=== PATIENT | female | born 1935 | race Caucasian/White ===

== ENCOUNTER 2024-05-22 07:39 | Outpatient (CLI) | payer MEDICARE, BC, SELFPAY | END 2024-05-22 07:40 | disposition home or self-care (01) | LOC: AMB 05-23 15:58 | PROVIDERS: PCP Family Medicine; Visit Provider Family Medicine | DX: M54.9 Dorsalgia, unspecified (principal); F03.90 Unspecified dementia, unspecified severity, without behavioral disturbance, psychotic disturbance, mood disturbance, and anxiety | CPT/HCPCS: A0425; A0427 ==

== ENCOUNTER 2024-05-22 08:26 | Observation (INO) | payer MEDICARE, BC, SELFPAY ==
[2024-05-22] VITALS (7 sets, daily range): BP systolic 165–200; BP diastolic 77–81; PULSE 62–90; RESP 16–20; TEMP 36.2–36.6; O2SAT 91–96; BMI 20.9
--- NOTE | 2024-05-22 08:47 | ED.GENADULT ---
HPI - General Adult General Chief complaint: Fall/Minor Trauma Stated complaint: Fall Time Seen by Provider: 05/22/24 08:49 History of Present Illness HPI narrative: Patient is an 89-year-old woman who lives with her daughter. She has had frequent falls of varying severity over the last several weeks. It is unclear why that she has hit her head. It is unclear whether she has had a loss of consciousness. Patient complains today of pain in her low back in the midline. She has no musculoskeletal complaints otherwise. Patient has significant dementia and arrives via EMS. By history she has had no fevers no chills no night sweats no nausea no vomiting. She appears well cared for and has been eating and drinking normally. Related Data Home Medications ?Medication ?Instructions ?Recorded ?Confirmed donepezil .ROUTE 05/22/24 folic acid .ROUTE 05/22/24 levothyroxine .ROUTE 05/22/24 lisinopril .ROUTE 05/22/24 methotrexate .ROUTE 05/22/24 metoprolol tartrate .ROUTE 05/22/24 mirtazapine .ROUTE 05/22/24 prednisolone .ROUTE 05/22/24 rivaroxaban .ROUTE 05/22/24 Allergies Allergy/AdvReac Type Severity Reaction Status Date / Time No Known Drug Allergies Allergy Verified 05/22/24 09:04 Review of Systems Status of ROS: Reports: 10 or more systems reviewed and unremarkable except as noted in History and below Exam Narrative: Exam Narrative: EXAM GENERAL: Patient appears comfortable and well. EYES: No scleral icterus. LYMPH: No supraclavicular or cervical lymphadenopathy. SKIN: Visible skin seen during exam normal or with benign process only. EXT: No dependent lower extremity pedal edema. HEART: Regular rate and rhythm with no murmurs, rubs, or gallops. LUNGS: Clear to auscultation bilaterally with no crackles or wheezes. ABD: Soft, non tender, non distended. PSYCH: Good eye contact, speech is not pressured. GCS is normal but the patient does have confusion due to dementia. Const: Vital Signs, click to edit/add: Vital Signs - 24 hr 05/22/24 08:41 Temperature 97.7 F Pulse Rate [Pulse Oximeter] 71 Respiratory Rate 16 Blood Pressure [Ri ght Upper Arm] 165/77 H Pulse Oximetry 91 Oxygen Delivery Me thod Room Air Course Course ED Course: CT head neck chest abdomen pelvis CBC comprehensive metabolic panel UA EKG pending. Vital Signs Vital signs: Initial Vital Signs Temperature 97.7 F 05/22/24 08:41 Temperature Source Temporal Artery Scan 05/22/24 08:41 Pulse Rate 71 05/22/24 08:41 Respiratory Rate 16 05/22/24 08:41 Blood Pressure 165/77 H 05/22/24 08:41 Blood Pressure Mean 106 H 05/22/24 08:41 Pulse Oximetry 91 05/22/24 08:41 Oxygen Delivery Method Room Air 05/22/24 08:41 Vital Signs Temperature 97.7 F 05/22/24 08:41 Pulse Rate 71 05/22/24 08:41 Respiratory Rate 16 05/22/24 08:41 Blood Pressure 165/77 H 05/22/24 08:41 Pulse Oximetry 91 05/22/24 08:41 Oxygen Delivery Method Room Air 05/22/24 08:41 Temperature 97.7 F 05/22/24 08:41 Pulse Rate 71 05/22/24 08:41 Respiratory Rate 16 05/22/24 08:41 Blood Pressure 165/77 H 05/22/24 08:41 Pulse Oximetry 91 05/22/24 08:41 Oxygen Delivery Method Room Air 05/22/24 08:41 Medical Decision Making MDM Narrative Medical decision making narrative: Patient is 89-year-old woman who has been falling at home. She comes in by EMS as family is unable to care for although they have been doing a her road job to this point. I did do CT chest abdomen pelvis as well as head neck. I do not see any pathology in her labs are reassuring EKG shows no acute abnormalities. Patient is anticoagulated for history of blood clots. She has history of dementia hypertension rheumatoid arthritis. I did have a nice discussion with both she and her family advising them that they may not be safe at home and being in the hospital is the right thing in observation. Also recommended a care home stay and I stated that she will likely not be in acute care long enough to qualify for rehab stay and may need Pap from for care home bed. All questions were answered patient and family like to proceed with admission to observation. Lab Data Labs: Lab Results 05/22/24 05/22/24 Range/Units 09:15 09:45 WBC 13.77 H (4.50-11.00) K/uL RBC 4.64 (4.00-5.20) m/uL Hgb 14.4 (12.0-16.0) gm/dL Hct 44.1 (33.0-51.0) % MCV 95 (80-100) fL MCH 31 (26-34) pg MCHC 33 (32-36) gm/dL RDW Coeff of Shameka 14.4 (11.5-15.5) % Plt Count 159 (140-440) K/uL Neut % (Auto) 91.5 H (42.0-72.0) % Lymph % (Auto) 2.5 L (20-44) % [place] % (Auto) 5.4 (0.0-11.0) % Eos % (Auto) 0.1 (0.0-7.0) % Baso % (Auto) 0.2 (0.0-3.0) % Neut # (Auto) 12.60 H (1.7-7.0) K/uL Lymph # (Auto) 0.30 L (0.90-2.90) K/uL [place] # (Auto) 0.70 (0.00-0.90) K/UL Eos # (Auto) 0.00 (0.00-0.50) K/uL Baso # (Auto) 0.00 (0.00-0.30) K/uL Abs Immat Gran (auto) 0.00 (0.00-0.30) K/uL Imm/Tot Granulo (auto) 0.3 % Sodium 139 (135-149) mmol/L Potassium 4.3 (3.6-5.1) mmol/L Chloride 103 (96-114) mmol/L Carbon Dioxide 27 (20-32) mmol/L Anion Gap 9 (7-15) mEq/L BUN 18 (7-30) mg/dL Creatinine 1.0 (0.5-1.5) mg/dL Estimated GFR 54 ml/min Glucose 157 H (60-115) mg/dL Calcium 9.0 (8.4-10.6) mg/dL Total Bilirubin 1.8 H (0.1-1.5) mg/dL AST 30 (12-35) U/L ALT 18 (4-35) U/L Alkaline Phosphatase 76 (40-150) U/L Total Protein 6.4 (6.0-8.3) g/dL Albumin 3.8 (3.3-5.0) g/dL Urine Color Yellow (Yellow) Urine Appearance Clear (Clear) Urine pH 6.5 (5.0-8.5) Ur Specific [place] 1.010 (1.000-1.030) Urine Protein Negative (Negative) Urine Glucose (UA) Negative (Negative) Urine Ketones Negative (Negative) Urine Blood Negative (Negative) Urine Nitrite Negative (Negative) Urine Bilirubin Negative (Negative) Urine Urobilinogen 0.2 (0.2-1.0) Ur Leukocyte Esterase Negative (Negative) Discharge Plan Discharge Clinical Impression: Falls Patient Disposition: Admitted As Observation Condition: Stable Activity Level: Other Discharge Diet: Other Prescriptions: No Action donepezil .ROUTE levothyroxine [Levothroid] .ROUTE lisinopril .ROUTE metoprolol tartrate .ROUTE rivaroxaban [Xarelto] .ROUTE mirtazapine .ROUTE folic acid .ROUTE methotrexate .ROUTE prednisolone .ROUTE Follow Up/Referrals: Hitesh Gonzalez MD [Primary Care Provider] -
[2024-05-22 09:20] LABS: Basophils Percent Auto 0.2 % (0.0-3.0); Eosinophils Percent Auto 0.1 % (0.0-7.0); Hematocrit 44.1 % (33.0-51.0); Hemoglobin* 14.4 gm/dL (12.0-16.0); Immature Granulocytes Pct Auto 0.3 %; Lymphocytes Percent Auto 2.5 % (20-44); Mean Corpuscular HGB Conc 33 gm/dL (32-36); Mean Corpuscular Hemoglobin 31 pg (26-34); Mean Corpuscular Volume 95 fL (80-100); Monocytes Percent Auto 5.4 % (0.0-11.0); Neutrophils Percent Auto 91.5 % (42.0-72.0); Platelet Count* 159 K/uL (140-440); RDW Coefficient of Variation % 14.4 % (11.5-15.5); Red Blood Count 4.64 m/uL (4.00-5.20); White Blood Count* 13.77 K/uL (4.50-11.00)
[2024-05-22 09:23] LABS: Slide Review Reflex No
[2024-05-22 09:33] LABS: Chloride* 103 mmol/L (96-114)
[2024-05-22 09:34] LABS: Albumin* 3.8 g/dL (3.3-5.0); Potassium* 4.3 mmol/L (3.6-5.1); Sodium* 139 mmol/L (135-149)
[2024-05-22 09:36] LABS: Anion Gap 9 mEq/L (7-15); Bilirubin Total* 1.8 mg/dL (0.1-1.5); Blood Urea Nitrogen* 18 mg/dL (7-30); Carbon Dioxide* 27 mmol/L (20-32); Estimated Glomerular Filt Rate 54 ml/min; Total Protein* 6.4 g/dL (6.0-8.3)
[2024-05-22 09:37] LABS: Alanine Aminotransferase* 18 U/L (4-35); Alkaline Phosphatase* 76 U/L (40-150); Aspartate Amino Transferase* 30 U/L (12-35); Glucose* 157 mg/dL (60-115)
[2024-05-22 09:53] LABS: Appearance Urine Clear (Clear); Bilirubin Urine Negative (Negative); Blood Urine Negative (Negative); Color Urine Yellow (Yellow); Glucose Urine Negative (Negative); Ketones Urine Negative (Negative); Leukocyte Esterase Urine Negative (Negative); Nitrite Urine Negative (Negative); Protein Urine Negative (Negative); Urobilinogen Urine 0.2 (0.2-1.0); pH Urine 6.5 (5.0-8.5)
--- NOTE | 2024-05-22 13:25 | PC.NURSE ---
Admission - Pt arrived from ED at approximately 1050 accompanied by friend and daughter. Not able to get out of bed, transferred from ED bed to MS bed by slide transfer. Pt alert, oriented to self only. Admission questions answered by daughter, Heydi. Pt indicated feeling pain in her back, but was unable to rate on scale of 1-10 and was easily distractible when asked about discomfort. Tolerating RA and able to drink thin liquids with assistance and straw. Family at bedside.
--- NOTE | 2024-05-22 13:48 | PM.IMHP1 ---
Hospitalist- H&P: HPI History of Present Illness Date Seen: 05/22/24 Chief complaint: Fall Narrative: Demetria Olivera is a 89 year old female with dementia, anticoagulation, DVT, rheumatoid arthritis, hypothyroidism, osteoporosis admitted through the emergency department after recurrent falls at home. Patient lives with her daughter and her son-in-law. They are her caregivers. They public works laborer. She has had increasing problems with falling having fallen the last 3 days at home. Her daughter is also noted overall decline recently in her health status. She is also noted to have increasing visual hallucinations. She has been having visual hallucinations for some time but they have gotten worse recently. These are mostly not frightening and mostly she is to seeing people present in her room where she is sitting. She has not had obvious other symptoms of illness, cold, cough, fever, shortness of breath, chest pain or abdominal pain. She has been eating normally and bowel bladder function been normal for her. She is incontinent of urine. Her daughter is concerned that she can no longer care for her in the home and is interested in alternative placement. Review of Systems Narrative: Patient unable to report any symptoms due to dementia. Her daughter is not aware of any problems other than declining cognitive function and ability to walk and worsening hallucinations. 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 - Immunodeficiency due to drugs (ICD-10) ?Z79.899 - Other usp (current) drug therapy (ICD-10) Osteoporosis ?M81.0 - Age-related osteoporosis without current pathological fracture (ICD-10) Sjogrens syndrome ?M35.00 - Sjogren syndrome, unspecified (ICD-10) Chronic anticoagulation ?Z79.01 - rn long term care (current) use of anticoagulants (ICD-10) History of DVT (deep vein thrombosis) ?Z86.718 - Personal history of other venous thrombosis and embolism (ICD-10) Hypothyroidism ?E03.9 - Hypothyroidism, unspecified (ICD-10) Rheumatoid arthritis ?M06.9 - Rheumatoid arthritis, unspecified (ICD-10) Dementia ?F03.90 - Unspecified dementia, unspecified severity, without behavioral disturbance, psychotic disturbance, mood disturbance, and anxiety (ICD-10) Surgical History (Updated 05/22/24 @ 13:55 by Oz Weiss MD) History of lumbar laminectomy ?Z98.890 - Other specified postprocedural states (ICD-10) Family History (Updated 05/22/24 @ 13:56 by Oz Weiss MD) Brother Dementia Father Dementia Social History (Updated 05/22/24 @ 13:58 by Oz Weiss MD) Narrative: She lives with her daughter and her daughter's in [place]. They go to the [facility] for primary care. Her primary care physician just left the practice. She has been living with her daughter for about 2 years. She does not smoke. She rarely drinks alcohol. Code status is DNR DNI. Her daughter, Heydi, is healthcare POA What is your current living situation?: unable to answer Problems where you live: no known problems Problems where you live details: daughter (caregiver) reports increased need at home due to frequent falls and increased AMS/hallucinations In the past 12 months, utilities in danger of being shut off: no In past 12 months, lack of transportation kept you from medical appts, meetings, work, or getting things needed for daily living: no In the past 12 mos, have been you worried that your food would run out before you had money to buy more?: never true In the past 12 mos, the food you bought just didn't last and you didn't have money to buy more?: never true Smoking Status: Never smoker Second hand tobacco smoke exposure: No How often do you have a drink containing alcohol: monthly or less How often do you have six or more drinks on one occasion: Never AUDIT-C Alcohol total score: 1 Non-prescribed substance use: denies use Caffeine: Yes (coffee) How often does anyone, including family, friends and others, physically hurt you: unable to answer How often does anyone, including family, friends and others, insult or talk down to you: unable to answer How often does anyone, including family, friends and others, threaten you with harm: unable to answer How often does anyone, including family, friends and others, scream or curse at you: unable to answer Meds Home Medications and Allergies Home Medications ?Medication ?Instructions ?Recorded ?Confirmed ?Type donepezil 10 mg tablet 10 mg PO DAILY 05/22/24 05/22/24 History folic acid 1 mg tablet 2 mg PO DAILY 05/22/24 05/22/24 History levothyroxine 75 mcg tablet 75 mcg PO DAILY 05/22/24 05/22/24 History lisinopril 20 mg tablet 20 mg PO DAILY 05/22/24 05/22/24 History methotrexate sodium 2.5 mg tablet 20 mg PO QWEEK 05/22/24 05/22/24 History metoprolol tartrate 25 mg tablet 25 mg PO BID 05/22/24 05/22/24 History mirtazapine 30 mg tablet 30 mg PO HS 05/22/24 05/22/24 History prednisone 5 mg tablet 5 mg PO DAILY 05/22/24 05/22/24 History rivaroxaban 20 mg tablet (Xarelto) 20 mg PO DAILY 05/22/24 05/22/24 History Allergies Allergy/AdvReac Type Severity Reaction Status Date / Time No Known Drug Allergies Allergy Verified 05/22/24 09:04 Exam Narrative: Exam Narrative: She is alert, pleasant and in no distress. Her speech is fluent. She is not oriented to her circumstances her location or able to recall any events of the last day. Head is without trauma. Eyes normal. Oropharynx is normal. No facial asymmetry. Neck is supple without mass or adenopathy. Respirations are clear to auscultation. Cardiovascular: S1, S2, regular rate and rhythm. Abdomen is soft without tenderness or mass. External genitalia normal. Extremities without notable trauma. She has good motion and strength in all 4 extremities without focal weakness. No significant edema. Intact pedal pulses. Const: Vital Signs, click to edit/add: Vital Signs - 24 hr 05/22/24 08:41 05/22/24 13:07 Temperature 97.7 F 97.2 F L Pulse Rate [Pulse Oximeter] 71 62 Respiratory Rate 16 20 Blood Pressure [Ri ght Arm] 200/78 H Blood Pressure [Ri ght Upper Arm] 165/77 H Pulse Oximetry 91 95 Oxygen Delivery Me thod Room Air Room Air Documenting provider has reviewed patient's vital signs: yes Hospitalist - H&P: Result Labs Labs: Short CBC 05/22/24 Range/Units 09:15 WBC 13.77 H (4.50-11.00) K/uL Hgb 14.4 (12.0-16.0) gm/dL Hct 44.1 (33.0-51.0) % Plt Count 159 (140-440) K/uL BMP 05/22/24 09:15 Sodium 139 Potassium 4.3 Chloride 103 Carbon Dioxide 27 BUN 18 Creatinine 1.0 Glucose 157 H Calcium 9.0 Liver Function 05/22/24 Range/Units 09:15 Total Bilirubin 1.8 H (0.1-1.5) mg/dL AST 30 (12-35) U/L ALT 18 (4-35) U/L Alkaline Phosphatase 76 (40-150) U/L Albumin 3.8 (3.3-5.0) g/dL Urine 05/22/24 Range/Units 09:45 Urine Color Yellow (Yellow) Urine Appearance Clear (Clear) Urine pH 6.5 (5.0-8.5) Ur Specific [place] 1.010 (1.000-1.030) Urine Protein Negative (Negative) Urine Glucose (UA) Negative (Negative) Assessment and Plan Assessment and plan (1) Falls: Problem comment: Patient needs a walker for safety but is forgetting to use it. She is also falling when getting out of bed or out of the recliner. No longer safe to be up on her own Status: Acute (2) Dementia: Problem comment: Moderately severe. Status: Acute (3) Immunosuppression due to drug therapy: Problem comment: On chronic methotrexate and prednisone for rheumatoid arthritis. Not having an obvious infection at this time. Continue to monitor for acute illness that might account for her recent worsening. Status: Acute (4) Discharge planning issues: Problem comment: Daughter reports she is no longer able to care for her mother. Status: Acute Plan Admit for evaluation of acute worsening of cognitive function and evaluation by therapy and peoplesoft crm developer for appropriate disposition Total Time Spent Total Time Spent: Total time spent today is 60 minutes in coordination of care discussing with patient's daughter and other providers ongoing plan of care and disposition
[2024-05-22 16:10] LABS: PCR FLU A Negative PCR FLU A (Negative); PCR FLU B Negative PCR FLU B (Negative); PCR RSV Negative PCR RSV (Negative); SARS PCR* Negative SARS-CoV-2 (Negative)
[2024-05-22] MEDS: METOPROLOL TARTRATE 25 MG TABLET PO (20:22)
[2024-05-22] MEDS: MELATONIN 3 MG TABLET PO (20:23)
[2024-05-22] MEDS: ACETAMINOPHEN 325 MG TABLET 650 MG PO (20:23)
[2024-05-22] MEDS: MIRTAZAPINE 15 MG TABLET 30 MG PO (20:23)
[2024-05-23] VITALS (7 sets, daily range): BP systolic 154–215; BP diastolic 69–81; PULSE 61–70; RESP 16–20; TEMP 36–36.3; O2SAT 92–94
[2024-05-23 04:10] LABS: Hemoglobin A1C* 5.4 % (0-5.6)
[2024-05-23] MEDS: LEVOTHYROXINE 75 MCG TABLET PO (06:09)
[2024-05-23 06:36] LABS: Basophils Absolute Auto 0.05 K/uL (0.00-0.30); Basophils Percent Auto 0.6 % (0.0-3.0); Eosinophils Absolute Auto 0.33 K/uL (0.00-0.50); Eosinophils Percent Auto 4.3 % (0.0-7.0); Hematocrit 42.1 % (33.0-51.0); Hemoglobin* 13.8 gm/dL (12.0-16.0); Immature Granulocytes Abs Auto 0.03 K/uL (0.00-0.30); Immature Granulocytes Pct Auto 0.4 %; Lymphocytes Percent Auto 10.1 % (20-44); Mean Corpuscular HGB Conc 33 gm/dL (32-36); Mean Corpuscular Hemoglobin 31 pg (26-34); Mean Corpuscular Volume 94 fL (80-100); Monocytes Percent Auto 6.9 % (0.0-11.0); Neutrophils Percent Auto 77.7 % (42.0-72.0); Platelet Count* 166 K/uL (140-440); RDW Coefficient of Variation % 14.3 % (11.5-15.5); Red Blood Count 4.46 m/uL (4.00-5.20)
[2024-05-23 06:37] LABS: Slide Review Reflex No
[2024-05-23 06:42] LABS: Albumin* 3.5 g/dL (3.3-5.0)
[2024-05-23 06:45] LABS: Alanine Aminotransferase* 18 U/L (4-35); Alkaline Phosphatase* 73 U/L (40-150); Aspartate Amino Transferase* 33 U/L (12-35); Bilirubin Direct* 0.4 mg/dL (0.0-0.5); Bilirubin Total* 1.3 mg/dL (0.1-1.5); Total Protein* 6.1 g/dL (6.0-8.3)
[2024-05-23] MEDS: predniSONE 5 MG TABLET PO (07:21)
[2024-05-23] MEDS: METOPROLOL TARTRATE 25 MG TABLET PO (07:21)
[2024-05-23] MEDS: lisinopriL 20 MG TABLET PO (07:21)
[2024-05-23] MEDS: RIVAROXABAN 10 MG TABLET 20 MG PO (07:21)
[2024-05-23] MEDS: FOLIC ACID 1 MG TABLET 2 MG PO (07:21)
[2024-05-23] MEDS: DONEPEZIL 10 MG TABLET PO (07:21)
[2024-05-23] MEDS: ACETAMINOPHEN 325 MG TABLET 650 MG PO (09:35)
--- NOTE | 2024-05-23 11:40 | PC.SOCIAL ---
Addendum entered by Madina Clinton [facility] 05/23/24 16:47: Met again with dtrs for update on facilities contacted and provided following update: 1. [facility] - does not have availability. 2. [facility]- can not accept due to need for 2 person assist. 3. [facility] is still assessing. 4. [facility] has not returned messages left. Provided family with list of custodial facilities as 2 person assist is too much for some memory care facilities to accept. Called the following custodial facitities at family request with the listed results: 1. [facility] - left message requesting call back. 2. [facility] - faxed information to the number listed on voicemail for referrals. 3. [facility] - faxed information to the number on voicemail for referrals and awaiting call back. cellophane worker to follow up as needed. Addendum entered by MENDOZA OlivierSW 05/23/24 13:54: REceived call from [facility] in [place] stating they have no availability in their memory care unit. cellophane worker to follow up as needed. Addendum entered by MENDOZA OlivierSW 05/23/24 13:41: Received call back from [facility] and secure emailed information to Sushma for evaluation for admit. Family later requested social work to look for placement in [facility]. Called the following facilities for memory care or TCU admit. 1. [facility], spoke with Germaine and secure emailed information for evaluation for admit. 2. [facility] - no beds available. 3. [facility] - no beds available. 4. [facility] - left message awaiting call back. 5. [facility], left message and awaiting call back. cellophane worker to follow up as needed. Original Note: Discharge planning: Met with pt and dtrs in room regarding d/c plan. Pt lives iwth dtr Heydi and in their home in [facility]. Family feels pt should not return home due to multiple falls in past few days and are requesting memory care placement. Family requested social work contact facilities listed below: 1. [facility] in [place] [phone] left msg with nursing. AWaiting call back. 2. [facility] in [place] [phone] - left msg for Nilsa awaiting call back. 3. [facility] in [place] [phone] - left msg for Andie, awaiting call back. cellophane worker to follow up as needed.
[2024-05-23] MEDS: SENNOSIDES/DOCUSATE TABLET 2 TAB PO (12:21)
[2024-05-23] MEDS: IBUPROFEN 200 MG TABLET PO ×2 (12:21→18:17)
--- NOTE | 2024-05-23 16:42 | PM.IMPN1 ---
Progress Note: A&P Assessment and plan (1) Falls: Problem details: Patient needs a walker for safety but is forgetting to use it. She is also falling when getting out of bed or out of the recliner. No longer safe to be up on her own. Pending safe disposition. Status: Acute (2) Dementia: Problem details: Moderately severe. Needs 247 supervision Status: Acute (3) Immunosuppression due to drug therapy: Problem details: On chronic methotrexate and prednisone for rheumatoid arthritis. Not having an obvious infection at this time. Continue to monitor for acute illness that might account for her recent worsening. Status: Acute (4) Discharge planning issues: Problem details: Daughter reports she is no longer able to care for her mother. Status: Acute (5) Hypertension: Problem details: Blood pressure is fairly high. Daughters think this is because it goes up when she is anxious. Continue to monitor and consider some increase of blood pressure medicine Status: Acute Plan Continue in hospital pending safe discharge plan Time Spent With Patient Total time spent: Total time spent today is 45 minutes in coordination of care and discussing with other providers and the patient's daughters her current health status and plan of disposition. Subjective Date Seen: 05/23/24 Interval history: Admission HPI: Demetria Olivera is a 89 year old female with dementia, anticoagulation, DVT, rheumatoid arthritis, hypothyroidism, osteoporosis admitted through the emergency department after recurrent falls at home. Patient lives with her daughter and her son-in-law. They are her caregivers. They ornamental iron worker. She has had increasing problems with falling having fallen the last 3 days at home. Her daughter is also noted overall decline recently in her health status. She is also noted to have increasing visual hallucinations. She has been having visual hallucinations for some time but they have gotten worse recently. These are mostly not frightening and mostly she is to seeing people present in her room where she is sitting. She has not had obvious other symptoms of illness, cold, cough, fever, shortness of breath, chest pain or abdominal pain. She has been eating normally and bowel bladder function been normal for her. She is incontinent of urine. Her daughter is concerned that she can no longer care for her in the home and is interested in alternative placement. 05/23/2024: Patient is been stable overnight. Blood pressures have been elevated which is apparently a problem prior to this admission. Minimal behavioral difficulties. Mostly pleasantly confused. No reports of new symptoms of illness from nursing or family. Discussed with daughters her current status as an observation patient without obvious need for hospitalization and hospital treatment. Exam Narrative: Exam Narrative: She is pleasant. Minimally verbal. Follows simple commands with difficulty. No facial asymmetry. Moves all 4 extremities well without focal weakness. Mild tremor with [id number] testing noted. No significant ataxia. Const: Vital Signs, click to edit/add: Vital Signs - 24 hr 05/22/24 19:38 05/22/24 20:23 05/22/24 22:31 Temperature 98 F 98 F Pulse Rate [Pulse Oximeter] 90 90 Respiratory Rate 16 16 Blood Pressure [Ri ght Arm] 168/81 H Pulse Oximetry 96 Oxygen Delivery Me thod Room Air 05/22/24 22:34 05/22/24 22:34 05/23/24 02:44 Temperature Pulse Rate [Pulse Oximeter] Respiratory Rate 16 16 16 Blood Pressure [Ri ght Arm] Pulse Oximetry Oxygen Delivery Me thod 05/23/24 06:15 05/23/24 07:16 05/23/24 11:51 Temperature 97.0 F L 97.2 F L Pulse Rate [Pulse Oximeter] 67 61 Respiratory Rate 16 16 16 Blood Pressure [Ri ght Arm] 215/81 H 154/69 H Pulse Oximetry 93 92 Oxygen Delivery Me thod Room Air Room Air 05/23/24 15:00 05/23/24 15:00 Temperature 96.8 F L Pulse Rate [Pulse Oximeter] 70 70 Respiratory Rate 16 16 Blood Pressure [Ri ght Arm] 168/75 H Pulse Oximetry 94 Oxygen Delivery Me thod Room Air Documenting provider has reviewed patient's vital signs: yes Labs Labs: Laboratory Results - last 24 hr 05/22/24 05/23/24 09:15 05:55 WBC 7.70 RBC 4.46 Hgb 13.8 Hct 42.1 MCV 94 MCH 31 MCHC 33 RDW Coeff of Shameka 14.3 Plt Count 166 Neut % (Auto) 77.7 H Lymph % (Auto) 10.1 [place] % (Auto) 6.9 Eos % (Auto) 4.3 Baso % (Auto) 0.6 Neut # (Auto) 6.00 Lymph # (Auto) 0.80 [place] # (Auto) 0.50 Eos # (Auto) 0.33 Baso # (Auto) 0.05 Abs Immat Gran (auto) 0.03 Imm/Tot Granulo (auto) 0.4 Hemoglobin A1c 5.4 Total Bilirubin 1.3 Direct Bilirubin 0.4 AST 33 ALT 18 Alkaline Phosphatase 73 Total Protein 6.1 Albumin 3.5
--- NOTE | 2024-05-23 22:41 | PC.NURSE ---
Patient awake and alert for majority of shift. Daughters in room with patient until dinner. Patient answers yes/no questions and able to state she has discomfort. Up to bedside commode with Ax2. Took ibuprofen from nurse to help with chronic back pain. Patient started becoming more agitated and talking to herself at bedtime. She refused her medications and did not want nursing staff to touch her. Bed alarm used on patient for fall precautions. Patient hypertensive, but otherwise vitally stable. Does not use call light appropriately. Frequent rounding on patient performed to ensure safety. Nursing to continue to monitor.
[2024-05-24 03:21] VITALS: RESP 18
[2024-05-24 07:39] VITALS: BP 185/78; PULSE 71; RESP 16; TEMP 35.9; O2SAT 95
--- NOTE | 2024-05-24 07:48 | PC.NURSE ---
(Shift 23-07) Pt pleasant and cooperative. Pt remained in bed during shift. Pt repositioned and changed in bed. Pt slept well throughout the night.? ?
--- NOTE | 2024-05-24 08:55 | REH.OT ---
Attempted to see Demetria for OT session this morning. She is in bed, speaking to nursing staff. Tells OT she does not want to move, later states she wants to go home, OT offers to help get her up to get out, then pt decides this is not what she wants. Asks OT why something would be taken from her (not loud enough for OT to hear the thing that was presumed taken), stating evil people would do that. OT attempted again, to have pt move to eob, pt further declines activity, declines needs at this time, and due to voice and demeanor becoming more aggitated, OT discontinued efforts. Will resume OT efforts later this date or next as tolerated and as approrpaite.
--- NOTE | 2024-05-24 14:02 | PC.SOCIAL ---
Discharge Planning: LITO received information from the patient's family that there is a bed available for patient at [facility] in [place]. LITO called the admissions staff, Xochilt, who states that she has spoken with the family and they do have a bed, but need more information. LITO faxed patient summary to Xochilt - [phone]. Xochilt informed the family that the patient was accepted. LITO called Xochilt to confirm this. Xochilt states she is accepted and they can take her tomorrow between 930-1130. Xochilt needs copies of insurance card - LITO sent this - and POA. LITO discussed that we don't have these on file and that the family would need to provide this. LITO spoke with family and explained the time frame for admission. Family would like her to go [place] and that they will be ready to transport her at 9:00 AM in their own vehicle. Family reports they will need assistance getting her to their car. LITO updated RN.
[2024-05-24 15:00] VITALS: PULSE 71; RESP 16
--- NOTE | 2024-05-24 15:51 | PM.IMPN1 ---
Progress Note: A&P Assessment and plan (1) Falls: Problem details: Patient needs a walker for safety but is forgetting to use it. She is also falling when getting out of bed or out of the recliner. No longer safe to be up on her own. Pending safe disposition plan. Status: Acute (2) Dementia: Problem details: Moderately severe. Needs supervision Status: Acute (3) Immunosuppression due to drug therapy: Problem details: On chronic methotrexate and prednisone for rheumatoid arthritis. Not having an obvious infection at this time. Continue to monitor for acute illness that might account for her recent worsening. Status: Acute (4) Discharge planning issues: Problem details: Daughter reports she is no longer able to care for her mother. Status: Acute (5) Hypertension: Problem details: Blood pressure is fairly high. Daughters think this is because it goes up when she is anxious. Continue to monitor and consider some increase of blood pressure medicine Status: Acute Plan Continue to monitor and manage for any acute illness or injury. Anticipate discharge to memory care possibly tomorrow. Time Spent With Patient Total time spent: Total time spent today is 30 minutes, almost all in coordination of care and discussing with patient family and psych social worker the plan of care and disposition Subjective Date Seen: 05/24/24 Interval history: Admission HPI: Demetria Olivera is a 89 year old female with dementia, anticoagulation, DVT, rheumatoid arthritis, hypothyroidism, osteoporosis admitted through the emergency department after recurrent falls at home. Patient lives with her daughter and her son-in-law. They are her caregivers. They woodworker. She has had increasing problems with falling having fallen the last 3 days at home. Her daughter is also noted overall decline recently in her health status. She is also noted to have increasing visual hallucinations. She has been having visual hallucinations for some time but they have gotten worse recently. These are mostly not frightening and mostly she is to seeing people present in her room where she is sitting. She has not had obvious other symptoms of illness, cold, cough, fever, shortness of breath, chest pain or abdominal pain. She has been eating normally and bowel bladder function been normal for her. She is incontinent of urine. Her daughter is concerned that she can no longer care for her in the home and is interested in alternative placement. 05/23/2024: Patient is been stable overnight. Blood pressures have been elevated which is apparently a problem prior to this admission. Minimal behavioral difficulties. Mostly pleasantly confused. No reports of new symptoms of illness from nursing or family. Discussed with daughters her current status as an observation patient without obvious need for hospitalization and hospital treatment. 05/24/2024: Patient is generally doing well. Vital signs are normal except she continues to have significant hypertension. Family believes that she is better today. My interaction indicates she is certainly more talkative and more animated than yesterday when she seemed relatively sedated. Moving in the room requiring less assistance as well. Exam Narrative: Exam Narrative: She is alert pleasant in no distress. She is observed to eat. She is talking more today, making a little more sense and responding more appropriately than yesterday. She moves all 4 extremities fairly well. No focal weakness. Const: Vital Signs, click to edit/add: Vital Signs - 24 hr 05/23/24 19:00 05/23/24 23:15 05/24/24 03:21 Temperature 97.4 F L Pulse Rate [Pulse Oximeter] 70 Respiratory Rate 16 20 18 Blood Pressure [Ri ght Arm] 168/77 H Pulse Oximetry 93 Oxygen Delivery Me thod Room Air 05/24/24 07:39 Temperature 96.7 F L Pulse Rate [Pulse Oximeter] 71 Respiratory Rate 16 Blood Pressure [Ri ght Arm] 185/78 H Pulse Oximetry 95 Oxygen Delivery Me thod Room Air Documenting provider has reviewed patient's vital signs: yes
[2024-05-24 19:00] VITALS: BP 151/75; PULSE 88; RESP 16; TEMP 36.3; O2SAT 92
[2024-05-24] MEDS: MIRTAZAPINE 15 MG TABLET 30 MG PO (20:27)
[2024-05-24] MEDS: METOPROLOL TARTRATE 25 MG TABLET PO (20:27)
[2024-05-24 23:30] VITALS: RESP 18
[2024-05-25 05:26] VITALS: RESP 18
--- NOTE | 2024-05-25 05:29 | PC.NURSE ---
Pt is alert and oriented to self only. Pt denies pain, SOB, chest pain, and N/V. Pt is up A2 pivot to commode. Pt slept throughout most of night. ?
[2024-05-25] MEDS: LEVOTHYROXINE 75 MCG TABLET PO (06:36)
[2024-05-25 06:38] VITALS: BP 199/81; PULSE 74; RESP 20; TEMP 36.6; O2SAT 94
[2024-05-25] MEDS: DONEPEZIL 10 MG TABLET PO (08:45)
[2024-05-25] MEDS: lisinopriL 20 MG TABLET PO (08:46)
[2024-05-25] MEDS: predniSONE 5 MG TABLET PO (08:46)
[2024-05-25] MEDS: FOLIC ACID 1 MG TABLET 2 MG PO (08:46)
[2024-05-25] MEDS: AMLODIPINE 5 MG TABLET PO (08:46)
[2024-05-25] MEDS: RIVAROXABAN 10 MG TABLET 20 MG PO (08:46)
[2024-05-25] MEDS: SENNOSIDES/DOCUSATE TABLET 2 TAB PO (08:46)
[2024-05-25] MEDS: METOPROLOL TARTRATE 25 MG TABLET PO (08:46)
--- NOTE | 2024-05-25 09:00 | P.DS_ITS ---
DS: Providers Provider Date Seen: 05/25/24 Date of admission: 05/22/24 10:47 Primary care physician: Hitesh Gonzalez MD Admitting Clinician: Oz Weiss MD Attending Physician on discharge: Oz Weiss MD Date of Discharge: 05/25/24 DS: Diagnosis Discharge Diagnosis (1) Falls: Status: Acute Problem details: Patient needs a walker for safety but is forgetting to use it. She is also falling when getting out of bed or out of the recliner. No longer safe to be up on her own. Pending safe disposition plan. (2) Dementia: Status: Acute Problem details: Moderately severe. Needs supervision (3) Immunosuppression due to drug therapy: Status: Acute Problem details: On chronic methotrexate and prednisone for rheumatoid arthritis. Not having an obvious infection at this time. Continue to monitor for acute illness that might account for her recent worsening. (4) Hypertension: Status: Acute Problem details: Blood pressure is consistently high. Daughters think this is because it goes up when she is anxious. Amlodipine 5 mg daily added to blood pressure treatment. (5) Chronic anticoagulation: Status: Acute Problem details: On chronic therapeutic Xarelto for history of DVT. Discussed with her daughter who would like this discontinued. It sounds like her history of DVT was a provoked DVT related to an ankle fracture. DS: Summary Hospital Course Hospital Course: Admission HPI: Demetria Olivera is a 89 year old female with dementia, anticoagulation, DVT, rheumatoid arthritis, hypothyroidism, osteoporosis admitted through the emergency department after recurrent falls at home. Patient lives with her daughter and her son-in-law. They are her caregivers. They structural worker. She has had increasing problems with falling having fallen the last 3 days at home. Her daughter is also noted overall decline recently in her health status. She is also noted to have increasing visual hallucinations. She has been having visual hallucinations for some time but they have gotten worse recently. These are mostly not frightening and mostly she is to seeing people present in her room where she is sitting. She has not had obvious other symptoms of illness, cold, cough, fever, shortness of breath, chest pain or abdominal pain. She has been eating normally and bowel bladder function been normal for her. She is incontinent of urine. Her daughter is concerned that she can no longer care for her in the home and is interested in alternative placement. 05/23/2024: Patient is been stable overnight. Blood pressures have been elevated which is apparently a problem prior to this admission. Minimal behavioral difficulties. Mostly pleasantly confused. No reports of new symp toms of illness from nursing or family. Discussed with daughters her current status as an observation patient without obvious need for hospitalization and hospital treatment. 05/24/2024: Patient is generally doing well. Vital signs are normal except she continues to have significant hypertension. Family believes that she is better today. My interaction indicates she is certainly more talkative and more animated than yesterday when she seemed relatively sedated. Moving in the room requiring less assistance as well. 05/25/2024: Patient continues to do well. Blood pressure continues to be quite elevated. No behavioral issues. Status at Discharge Functional status at discharge: uses cane/walker Overall status at discharge: patient is progressing back to baseline Time Spent with Patient Time attestation: Total time spent providing and/or coordinating discharge services: 20 minutes Time spent: Less than 30 minutes Exam Narrative: Exam Narrative: She is alert and pleasant. Eating breakfast. No concerns today. Again noted to be more fluent and more conversational today. Const: Vital Signs, click to edit/add: Vital Signs - 24 hr 05/24/24 15:00 05/24/24 19:00 05/24/24 23:30 Temperature 97.3 F L Pulse Rate [Pulse Oximeter] 71 88 Respiratory Rate 16 16 18 Blood Pressure [Ri ght Arm] 151/75 H Pulse Oximetry 92 Oxygen Delivery Me thod Room Air 05/25/24 05:26 05/25/24 06:38 Temperature 97.8 F Pulse Rate [Pulse Oximeter] 74 Respiratory Rate 18 20 Blood Pressure [Ri ght Arm] 199/81 H Pulse Oximetry 94 Oxygen Delivery Me thod Documenting provider has reviewed patient's vital signs: yes DS: Data Imaging CT Chest/Ab/Pelvis: Radiologist's impression: INDICATION: Fall. On blood thinners. TECHNIQUE: CT chest, abdomen and pelvis acquired without IV contrast. COMPARISON: None FINDINGS: Chest: Cardiovascular structures: Mild enlargement of the heart and all 4 chambers. Thoracic aorta and main pulmonary artery are normal in caliber. No mediastinal hemorrhage. Mild coronary artery atherosclerosis calcifications. Mediastinum and otto: No mass or adenopathy. Lungs: Scattered small 1 cm or less pulmonary nodules in the lung bases. What appears to be possibly cavitated at the posterolateral right middle lobe (image 58 series 3). Cylindrical density in the anteromedial left upper lobe suggest endobronchial lesion or stenosis with fluid. Mild peripheral pulmonary vascular congestion. A few small nodules abutting the pleura in the posterior left upper lobe. Pleura and pericardium: Trace dependent bilateral pleural effusions. Physiologic pericardial fluid. Chest wall and axilla: No mass or adenopathy. Bones: No rib or spine fracture. Abdomen and Pelvis: Liver: Small wedge-shaped geographic low-attenuation focus ventral left liver near the falciform could be small cyst or focal fatty infiltration. Spleen: Unremarkable. Pancreas: Unremarkable. Gallbladder and bile ducts: Unremarkable. Kidneys: Unremarkable. Adrenal glands: Unremarkable. GI tract: Diverticula of the colon.. Appendix is normal. Vascular structures: Left common iliac vein stent. This extends into the external iliac. Prominent atherosclerosis diffusely. Lymph nodes: Unremarkable. Miscellaneous: Unremarkable. No free air or significant free fluid. Pelvic Organs: Small cyst right pelvis likely ovarian with subtle layering intermediate attenuation which could be hemorrhagic cyst (image 169 series 2). Bones: Vertebroplasty cement L2. Mild anterolisthesis L3-4. No acute fracture. IMPRESSION: No traumatic finding appreciated. Scattered small to moderate nodules in the bilateral mid lungs and lung bases. These may be infectious, inflammatory or metastatic. One probable endobronchial lesion in the anteromedial left upper lobe. Comparison to any prior imaging recommended. Correlate with history. Consider repeat CT chest for further characterization as clinically indicated CT scan - head: Radiologist's impression: Indication: Fall. Technique: Noncontrast CT images of the brain. Comparison: None. Findings: Artifact degrades image quality. [id number] diffuse cerebral volume loss. No mass effect or midline shift. Carlson-white differentiation is maintained. Suggested advanced chronic microvascular ischemic changes. No acute intracranial hemorrhage or pathologic extra-axial fluid collection. Intracranial atherosclerotic calcifications. Thinning of the ocular lenses. Calvarium is intact. Mild mucosal thickening in the maxillary sinuses. Mastoid air cells are clear. Impression: No acute intracranial hemorrhage or mass effect. C-spine CT: Radiologist's impression: Indication: Fall. Technique: Noncontrast CT images of the cervical spine. Comparison: None. Findings: The cervical lordosis is maintained. Vertebral body heights are preserved. No acute fracture or traumatic subluxation. Grade 1 anterolisthesis of C6 on C7 and C7 on T1. Severe multilevel disc height loss. Multilevel posterior disc osteophyte complexes mildly narrow the spinal canal. Multilevel uncinate spurring and facet arthropathy contributing up to advanced neural foraminal stenosis right C4-5. No concerning opacities in the lung apices. Impression: 1. No acute fracture or traumatic subluxation. 2. Multilevel cervical spondylosis. Discharge Plan Discharge Disposition: [facility] Date of Admission: 05/22/24 10:47 Attending Provider on Discharge: Oz Weiss Primary Care Provider: Hitesh Gonzalez Condition: Stable Anticipated Discharge Date/Time: 05/25/24 09:00 Discharge Medications: New amlodipine 5 mg tablet 5 mg PO DAILY Qty: 30 2RF Continued donepezil 10 mg tablet 10 mg PO DAILY lisinopril 20 mg tablet 20 mg PO DAILY prednisone 5 mg tablet 5 mg PO DAILY levothyroxine 75 mcg tablet 75 mcg PO DAILY methotrexate sodium 2.5 mg tablet 20 mg PO QWEEK Patient Comments: [NO ORIGINAL SIG] mirtazapine 30 mg tablet 30 mg PO HS folic acid 1 mg tablet 2 mg PO DAILY metoprolol tartrate 25 mg tablet 25 mg PO BID Patient Comments: [NO ORIGINAL SIG] Discontinued Xarelto 20 mg tablet 20 mg PO DAILY Discharge Orders: Discharge Order (Routine); Ordered 05/25/24 Ordered By: Oz Weiss Activity Level: Up with assist, Use Walker and Other Discharge Diet: Regular and Other Follow Up Appointments: Hitesh Gonzalez MD [Primary Care Provider] - Forms: [facility] Info Instructions Admit to: Assisted Living Discharge Potential: Poor Length of Stay: >90 days Can use facility standing orders?: Yes Code Status: DNR/DNI TEDs: N/A Rehab Potential: Poor Oxygen: No Urinary Catheter: No
--- NOTE | 2024-05-25 10:02 | PC.NURSE ---
Discharge - Pt alert, oriented to self only, and pleasant. Up with 2 assist and stand/pivot to commode with walker/gait belt. Pt required verbal direction and prompting by RN, displayed difficulty following commands. Tolerating RA, regular diet/fluids. Unable to rate pain in back, however was noted to say ow and rub her back with repositioning. Offered pillows to improve comfort with pt reporting improvement while in chair. Pt d/c'd with family to [facility] in [place] via wheelchair. Pt required x2 assist to stand/pivot into family vehicle. D/c instructions given to pt family members and understanding was verbalized. Pt d/c'd from the unit at approximately 0911.
--- NOTE | 2024-05-25 16:47 | PC.SOCIAL ---
Discharge planning: Late entry: Pt was picked up by family at 9:00 for transport to [facility]. Discharge orders were faxed to facility. Called food and beverage coordinator Xochilt who confirmed receipt and requested medication order for new med be sent to [facility] pharmacy used by facility. Shared with charge nurse who was able to change the prescription order to the requested facility. Facility confirmed they have all needed information and were ready for pt to arrive.
== END 2024-05-25 09:11 ==
LOC: ED 10:18 → MEDSURG 10:50
PROVIDERS: Admitting Provider Family Medicine; Emergency Provider Internal Medicine; PCP Family Medicine; Visit Provider Family Medicine
DX: R29.6 Repeated falls (principal); F03.B0 Unspecified dementia, moderate, without behavioral disturbance, psychotic disturbance, mood disturbance, and anxiety; I10 Essential (primary) hypertension; D84.821 Immunodeficiency due to drugs; Z75.8 Other problems related to medical facilities and other health care; Z79.899 Other long term (current) drug therapy; Z79.01 Long term (current) use of anticoagulants; Z86.718 Personal history of other venous thrombosis and embolism; M54.50 Low back pain, unspecified; R32 Unspecified urinary incontinence; Z66 Do not resuscitate
CPT/HCPCS: 36415; 51798; 70450; 71250; 72125; 74176; 80053; 80076; 81003; 83036; 84443; 85025; 87631; 93005; 97110; 97116; 97162; 97165; 97530; 99283; 99285; A9270; G0378; J7512